=== PATIENT | female | born 1990 | race Caucasian/White ===

== ENCOUNTER 2017-03-26 23:02 | Emergency (ER) | payer OTHER ==
[~2017-03-26] VITALS: Ht 162.6 cm; Wt 77.1 kg
--- NOTE | 2017-03-27 00:01 | ED GENERAL ADULT ---
History of Present Illness General Chief Complaint: General Adult Stated Complaint: "FEEL LIKE I HAVE A PILL STUCK IN THROAT" PER PT Source: patient Exam Limitations: no limitations Vital Signs & Intake/Output Vital Signs & Intake/Output Vital Signs Date Time Temp Pulse Resp B/P B/P Pulse O2 O2 Flow FiO2 Mean Ox Delivery Rate 03/27 0034 Room Air 03/26 2321 98.9 99 18 133/88 99 Room Air ED Intake and Output 03/27 0000 03/26 1200 Intake Total Output Total Balance Patient 170 lb Weight Weight Reported by Patient Measurement Method Allergies Coded Allergies: NO KNOWN ALLERGIES (01/19/14) Reconcile Medications Doxycycline Hyclate (Vibramycin) 100 MG CAPSULE 1 CAP PO BID MASTOIDITIS ( Reported) Triage Note: 26F C/O SENSATION OF FEELING HER DOXY CAPSULE FROM LAST NIGHT IS LODGED IN HER LARYNX. SPEAKING WITHOUT ISSUE, MANAGING SECRETIONS. URGENT CARE PRESCRIBED DOXY FOR R SIDED MASTOIDITIS, WHEN SHE CALLED ABOUT THIS SENSATION TONIGHT THEY ENCOURAGED HER TO COME TO ED FOR LARYNGOSCOPY. REPORTS SOME TENDERNESS TO SIDE OF NECK R>L. NO ACTIVE COUGHING, NO HEMOPTYSIS. AFEBRILE. 1/2 PPD SMOKER Triage Nurses Notes Reviewed? yes Onset: Abrupt Duration: day(s): (1) Injury Environment: home Severity: mild No Modifying Factors: none : No Patient currently breastfeeds: No HPI: This is a 26-year-old female who presents to the ER with chief complaint of feeling like her doxycycline that she took last night at 1050 got stuck in her throat. She has gone from feeling like it is their feeling and is not there. She went to the urgent care who told her to come here for laryngoscopy. She denies any fever chills chest pain or shortness of breath. She has been able to tolerate saliva as well as to eat and drink all day long. She had a similar experience with the same medication many years ago. No known history of esophageal ring or webs. Past History Travel History Traveled to [place] past 21 day No Medical History Any Pertinent Medical History? none Neurological: NONE EENT: NONE Cardiovascular: NONE Respiratory: NONE Gastrointestinal: NONE Hepatic: NONE Renal: NONE Musculoskeletal: NONE Psychiatric: NONE Endocrine: NONE Blood Disorders: NONE Cancer(s): NONE Surgical History Surgical History: non-contributory Psychosocial History What is your primary language Chilean Tobacco Use: Current Daily Use Daily Tobacco Use Amount/Type: => 5 Cigarettes daily ETOH Use: denies use Illicit Drug Use: denies illicit drug use Family History Hx Contributory? No Review of Systems Review of Systems Constitutional: Denies: chills, fever. EENTM: Reports: throat pain. Respiratory: Denies: cough, short of breath. Cardiovascular: Denies: chest pain. GI: Reports: no symptoms. Genitourinary: Reports: no symptoms. Musculoskeletal: Reports: no symptoms. Skin: Reports: no symptoms. Neurological/Psychological: Reports: no symptoms. Hematologic/Endocrine: Reports: no symptoms. Immunologic/Allergic: Reports: no symptoms. All Other Systems: Reviewed and Negative Physical Exam Physical Exam General Appearance: well developed/nourished, alert, awake Head: atraumatic, normal appearance Eyes: Bilateral: normal appearance, PERRL, EOMI. Ears, Nose, Throat: normal pharynx, normal ENT inspection, hearing grossly normal Neck: normal inspection, supple, full range of motion Respiratory: normal breath sounds, chest non-tender, no respiratory distress Cardiovascular: regular rate/rhythm Gastrointestinal: soft, non-tender Neurologic/Psych: no motor/sensory deficits, awake, alert, oriented x 3 Skin: intact, normal color, warm/dry Core Measures ACS in differential dx? No CVA/TIA Diagnosis: No Sepsis Present: No Sepsis Focused Exam Completed? No Progress Differential Diagnoses I considered the following diagnoses in my evaluation of the patient: [pill esophagitis, retained pill in throat, superficial irritation] Plan of Care: GI COCKTAIL given with good response. No longer feels anything stuck in her throat. Initial ED EKG: none Departure Departure Time of Disposition: 45 Disposition: HOME OR SELF CARE Condition: Stable Clinical Impression Primary Impression: Foreign body sensation in throat Referrals: Yoli Montes MD Patient Has No Primary Care Dr (PCP/Family) Additional Instructions: FOLLOW UP WITH THE ENT SPECIALIST LISTED RETURN TO THE ER FOR ANY CHANGING OR WORSENING SYMPTOMS Departure Forms: Customer Survey General Discharge Information Critical Care Note Critical Care Note Critical Care Time: non-applicable
[2017-03-27] MEDS ORDERED: VIBRAMYCIN100 MG PO (00:36)
[2017-03-27 00:52] VITALS: BP 125/82
== END 2017-03-27 00:53 ==
LOC: ERH 23:02
DX: R09.89 Other specified symptoms and signs involving the circulatory and respiratory systems (principal)